=== PATIENT | male | born 1955 | race Caucasian/White ===

== ENCOUNTER 2018-12-26 20:06 | Emergency (ER) | payer OTHER ==
[~2018-12-26] VITALS: Ht 185.5 cm; Wt 64.5 kg
[2018-12-26] MEDS ORDERED: TETANUS,DIPTH,PERTUSS P/F (BOOSTRIX) 0.5 ML VIAL IM ONE (20:45)
[2018-12-26] MEDS ORDERED: LIDOCAINE/EPI 2% 1:100,00 (XYLOCAINE) 20 ML VIAL INJ ONE (21:15)
--- NOTE | 2018-12-26 21:34 | Diagnostic Imaging Report ---
Clinical history: Tree fell on patient striking him in the head. Possible loss of consciousness. Exam: Head CT without IV contrast. Axial CT scan of the cervical spine with sagittal and coronal reformations. Auto Exposure Controls were utilized during the CT exam to meet ALARA standards for radiation dose reduction. Comparison: None. Findings: CT head: There is skull streak artifact which obscures portions of the brainstem, posterior fossa and brain. There is no evidence of acute cerebral infarct, intracranial hemorrhage or gross mass effect. The brain parenchymal volume appears appropriate for patient's age. There is normal blakely-white matter distinction. There is no significant midline shift or herniation. There is no evidence of hydrocephalus. The basal cisterns are unremarkable. There is a small area of extracranial soft tissue swelling involving the right posterior aspect of the head. There is no skull fracture. Skull, extracranial soft tissue and orbits are unremarkable. There is mild mucosal thickening involving both maxillary sinuses. There is moderate mucosal thickening involving the ethmoid sinus. There is mild mucosal thickening involving the frontal sinus and sphenoid sinus. Temporal bones show no significant abnormality. CT cervical spine: There is no acute cervical spine fracture or dislocation. There are vertebral body spurs and suggestion of diffuse disk bulge with mild to moderate loss of intervertebral disc height seen at the C4-C7 levels. There are small bilateral uncinate spurs with moderate to severe bilateral neural foraminal narrowing at these levels. There is no significant bony central canal narrowing. The visualized upper lung carranza show scarring and mild bronchiectasis. There are patchy areas of consolidation in the bilateral apical regions. There is emphysematous disease and bullous changes noted. The neck soft tissue structures show no significant abnormality. Impression: 1: There is no evidence of acute intracranial process. 2. There is no skull fracture. 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 Dictated by: Dictated on workstation # [id number]
--- NOTE | 2018-12-26 21:49 | NUR ---
C-collar cleared by Dr. Beckham @ this time.
[2018-12-26] MEDS ORDERED: SULF1TAB35 PO (21:52)
--- NOTE | 2018-12-26 21:52 | ED Head Injury ---
General Chief Complaint: Trauma-Non Activation Stated Complaint: HEAD LAC Allergies and Home Medications Allergies Coded Allergies: No Known Drug Allergies (Unverified , 12/26/18) Past Yusbpgm-Pmvetn-Ovookp Hx Patient Social History Recent Foreign Travel: No Contact w/Someone Who Travel: No Physical Exam Vital Signs Capillary Refill : Height, Weight, BMI Height: '" Weight: lbs. oz. kg; BMI Method: Progress/Results/Core Measures Results/Orders My Orders Orders - EMETERIO SAL DO Cervical Collar (12/26/18 20:32) Ct Head/Cervical Spine Wo (12/26/18 20:33) Dipht,Pertuss(Acell),Tet Adult (Boostrix (12/26/18 20:45) Lidocaine/Epi 2% 1:100,000 (Xylocaine/Ep (12/26/18 21:15) Sulfamethoxazole/Trimet Ds Tab (Bactrim (12/26/18 22:00) Medications Given in ED Current Medications Medications Dose Ordered Sig/Truman Route Start Time Stop Time Status Last Admin Dose Admin Diphtheria/ Tetanus/Acell Pertussis 0.5 ml ONCE ONCE IM 12/26/18 20:45 12/26/18 20:46 DC 12/26/18 21:14 0.5 ML Departure Impression Primary Impression: Closed head injury with brief loss of consciousness Additional Impressions: Scalp laceration Cervical sprain Xehmnqsoml-tdvucissf-glopfov (DPT) vaccination administered at current visit Disposition: 01 HOME, SELF-CARE Condition: Stable Departure-Patient Inst. Referrals: NO,LOCAL PHYSICIAN (PCP/Family) Primary Care Physician Patient Instructions: Neck Sprain (DC), Concussion, Adult (DC), Laceration Repair With Chano (DC) Add. Discharge Instructions: CLEAN WOUND TWICE A DAY WITH ANTIBACTERIAL SOAP AND WATER CHANO OUT IN 10 DAYS--RETURN TO ER FOR REMOVAL TYLENOL NEEDED FOR PAIN RETURN TO ER IF PROBLEMS All discharge instructions reviewed with patient and/or family. Voiced understanding. Scripts Sulfamethoxazole/Trimethoprim (Bactrim Ds Tablet) 1 Each Tablet 1 EACH PO BID, #20 TAB Prov: EMETERIO SAL DO 12/26/18 EMETERIO SAL DO Dec 26, 2018 21:52
[2018-12-26] MEDS ORDERED: TRIM/SULFAMETH 160/800 (SEPTRA DS) TAB PO ONE (22:00)
[2018-12-26 22:11] VITALS: BP 106/85
== END 2018-12-26 22:11 | disposition home or self-care (01) ==
LOC: EDUNIT# 20:06 → ER 20:07
DX: S06.9X1A Unspecified intracranial injury with loss of consciousness of 30 minutes or less, initial encounter (principal); S01.01XA Laceration without foreign body of scalp, initial encounter; S16.1XXA Strain of muscle, fascia and tendon at neck level, initial encounter; Z23 Encounter for immunization; X58.XXXA Exposure to other specified factors, initial encounter
CPT/HCPCS: 70450; 72125; 90715

== ENCOUNTER 2019-01-04 18:59 | Emergency (ER) | payer OTHER ==
[~2019-01-04] VITALS: Ht 185.4 cm; Wt 62.4 kg
[~2019-01-04 18:59] MED LIST: SULF1TAB35 PO
[2019-01-04] MEDS ORDERED: NS IV 1000 ML 1,000 ML IV ONE (19:35)
[2019-01-04 19:42] LABS: BASOPHILS % (AUTO) 0 % (0-10); EOSINOPHILS # (AUTO) 0.6 10^3/uL (0.0-0.3); EOSINOPHILS % (AUTO) 9 % (0-10); HEMATOCRIT 39 % (40-54); HEMOGLOBIN 13.4 G/DL (13.3-17.7); LYMPHOCYTES # (AUTO) 1.1 X 10^3 (1.0-4.0); LYMPHOCYTES % (AUTO) 17 % (12-44); MEAN CORPUSCULAR HEMOGLOBIN 32 PG (25-34); MEAN CORPUSCULAR HGB CONC 35 G/DL (32-36); MEAN CORPUSCULAR VOLUME 91 FL (80-99); MEAN PLATELET VOLUME 9.1 FL (7.4-10.4); MONOCYTES # (AUTO) 0.4 X 10^3 (0.0-1.0); MONOCYTES % (AUTO) 5 % (0-12); NEUTROPHILS # (AUTO) 4.4 X 10^3 (1.8-7.8); NEUTROPHILS % (AUTO) 69 % (42-75); PLATELET COUNT 218 10^3/uL (130-400); RED CELL DISTRIBUTION WIDTH 12.9 % (10.0-14.5); WHITE BLOOD COUNT 6.5 10^3/uL (4.3-11.0)
[2019-01-04 19:47] LABS: BILIRUBIN,URINE NEGATIVE (NEGATIVE); CLARITY,URINE CLEAR; COLOR,URINE YELLOW; GLUCOSE, URINE (UA) NEGATIVE (NEGATIVE); KETONES,URINE NEGATIVE (NEGATIVE); LEUKOCYTE ESTERASE ,URINE NEGATIVE (NEGATIVE); NITRITE,URINE NEGATIVE (NEGATIVE); PH,URINE 7 (5-9); PROTEIN,URINE NEGATIVE (NEGATIVE)
[2019-01-04 19:54] LABS: PROTHROMBIN TIME PATIENT 13.1 SEC (12.2-14.7)
[2019-01-04 19:56] LABS: BACTERIA,URINE NEGATIVE /HPF; WBC,URINE RARE /HPF
[2019-01-04 19:57] LABS: SQUAMOUS EPITHELIAL CELL,UR RARE /HPF
[2019-01-04 20:00] LABS: ALANINE AMINOTRANSFERASE 13 U/L (0-55); ALBUMIN 4.4 GM/DL (3.2-4.5); ALKALINE PHOSPHATASE 62 U/L (40-136); BILIRUBIN,TOTAL 0.3 MG/DL (0.1-1.0); BUN/CREATININE RATIO 9; CALCIUM 9.1 MG/DL (8.5-10.1); CARBON DIOXIDE 20 MMOL/L (21-32); CHLORIDE 99 MMOL/L (98-107); CREATINE KINASE 84 U/L (30-200); CREATININE SERUM 0.93 MG/DL (0.60-1.30); GFR ESTIMATED > 60; GLUCOSE 108 MG/DL (70-105); MAGNESIUM 1.7 MG/DL (1.6-2.4); POTASSIUM 3.6 MMOL/L (3.6-5.0); SODIUM 133 MMOL/L (135-145); TOTAL PROTEIN 7.1 GM/DL (6.4-8.2)
[2019-01-04 20:17] LABS: ERYTHROCYTE SEDIMENTATION RATE 16 MM/HR (0-30)
--- NOTE | 2019-01-04 20:29 | ED General ---
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 He started Bactrim on December 26 after a laceration repair with avril. He was struck in the head by a falling tree branch and required repair of a laceration. The Bactrim was prescribed prophylactically. About 2 days after starting Bactrim he developed an rash with desquamation of the glans penis. He stopped the Bactrim and the rash improved. He resumed a couple days later and rash worsened. He also now has involvement of the hands and feet with a petechial rash and a sensation of burning and tingling. There does not appear to be any mucous membrane involvement beyond the urethra. He has significant dysuria and clear drainage from the urethra. Because symptoms briefly improved, he took one more dose of Bactrim yesterday morning. He had another exacerbation at that time. He is afebrile. He has generalized body aches. Patient does not currently have a primary care provider. Allergies and Home Medications Allergies Coded Allergies: sulfamethoxazole (Verified Allergy, Unknown, 01/04/19) trimethoprim (Verified Allergy, Unknown, 01/04/19) Home Medications Prednisone 20 Mg Tab, 1 TAB PO UD Take 3 tablets on January 05. Then take 2 tablets daily the next 2 days. Then take 1 tablet daily the next 2 days Prescribed by: TIN URIBE on 01/04/192032 Patient Home Medication List Home Medication List Reviewed: Yes Review of Systems Review of Systems Constitutional: no symptoms reported EENTM: no symptoms reported Respiratory: no symptoms reported Cardiovascular: no symptoms reported Gastrointestinal: no symptoms reported Genitourinary: see HPI Musculoskeletal: see HPI Skin: see HPI Psychiatric/Neurological: No Symptoms Reported Hematologic/Lymphatic: No Symptoms Reported Immunological/Allergic: no symptoms reported Past Dpxgreh-Szcxef-Vtupco Hx Past Med/Social Hx: Reviewed Nursing Past Med/Soc Hx Patient Social History Alcohol Use: Denies Use Recreational Drug Use: No Smoking Status: Current Everyday Smoker Type Used: Cigarettes 2nd Hand Smoke Exposure: Yes Recent Foreign Travel: No Contact w/Someone Who Travel: No Recent Infectious Disease Expo: No Recent Hopitalizations: No Physical Abuse: No Sexual Abuse: No Mistreated: No Fear: No Immunizations Up To Date Tetanus Booster (TDap): Less than 5yrs Seasonal Allergies Seasonal Allergies: No Past Medical History Surgeries: No Respiratory: No Cardiac: No Neurological: No Genitourinary: No Gastrointestinal: No Musculoskeletal: No Endocrine: No HEENT: No Cancer: No Did You Recieve Any Treatments: No Psychosocial: No Integumentary: Yes Recent Skin Changes Blood Disorders: No Physical Exam Vital Signs Vital Signs - First Documented 01/04/19 19:10 Temp 36.1 Pulse 83 Resp 16 B/P (MAP) 101/84 (90) Pulse Ox 98 O2 Delivery Room Air Capillary Refill : Less Than 3 Seconds Height, Weight, BMI Height: '" Weight: lbs. oz. 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 Norm as Tested Skin: Warm/Dry, Petechia, Rash (Petechial rash of the hands and feet without desquamation) Progress/Results/Core Measures Suspected Sepsis Recent Fever Within 48 Hours: No Infection Criteria Present: None New/Unexplained Altered Menta: No Sepsis Screen: No Definite Risk SIRS Temperature: Pulse: 83 Respiratory Rate: 16 Laboratory Tests 01/04/19 19:33: White Blood Count 6.5 Blood Pressure 101 /84 Mean: 90 Laboratory Tests 01/04/19 19:33: Creatinine 0.93, INR Comment 1.0, Platelet Count 218, Total Bilirubin 0.3 Results/Orders Lab Results Laboratory Tests Test 01/04/19 19:33 01/04/19 19:37 Range/Units White Blood Count 6.5 4.3-11.0 10^3/uL Red Blood Count 4.23 L 4.35-5.85 10^6/uL Hemoglobin 13.4 13.3-17.7 G/DL Hematocrit 39 L 40-54 % Mean Corpuscular Volume 91 80-99 FL Mean Corpuscular Hemoglobin 32 25-34 PG Mean Corpuscular Hemoglobin Concent 35 32-36 G/DL Red Cell Distribution Width 12.9 10.0-14.5 % Platelet Count 218 130-400 10^3/uL Mean Platelet Volume 9.1 7.4-10.4 FL Neutrophils (%) (Auto) 69 42-75 % Lymphocytes (%) (Auto) 17 12-44 % Monocytes (%) (Auto) 5 0-12 % Eosinophils (%) (Auto) 9 0-10 % Basophils (%) (Auto) 0 0-10 % Neutrophils # (Auto) 4.4 1.8-7.8 X 10^3 Lymphocytes # (Auto) 1.1 1.0-4.0 X 10^3 Monocytes # (Auto) 0.4 0.0-1.0 X 10^3 Eosinophils # (Auto) 0.6 H 0.0-0.3 10^3/uL Basophils # (Auto) 0.0 0.0-0.1 10^3/uL Erythrocyte Sedimentation Rate 16 0-30 MM/HR Prothrombin Time 13.1 12.2-14.7 SEC INR Comment 1.0 0.8-1.4 Activated Partial Thromboplast Time 28 24-35 SEC Sodium Level 133 L 135-145 MMOL/L Potassium Level 3.6 3.6-5.0 MMOL/L Chloride Level 99 98-107 MMOL/L Carbon Dioxide Level 20 L 21-32 MMOL/L Anion Gap 14 5-14 MMOL/L Blood Urea Nitrogen 8 7-18 MG/DL Creatinine 0.93 0.60-1.30 MG/DL Estimat Glomerular Filtration Rate > 60 BUN/Creatinine Ratio 9 Glucose Level 108 H 70-105 MG/DL Calcium Level 9.1 8.5-10.1 MG/DL Corrected Calcium 8.8 8.5-10.1 MG/DL Magnesium Level 1.7 1.6-2.4 MG/DL Total Bilirubin 0.3 0.1-1.0 MG/DL Aspartate Amino Transf (AST/SGOT) 16 5-34 U/L Alanine Aminotransferase (ALT/SGPT) 13 0-55 U/L Alkaline Phosphatase 62 40-136 U/L Total Creatine Kinase 84 30-200 U/L C-Reactive Protein High Sensitivity 0.62 H 0.00-0.50 MG/DL Total Protein 7.1 6.4-8.2 GM/DL Albumin 4.4 3.2-4.5 GM/DL Urine Color YELLOW Urine Clarity CLEAR Urine pH 7 5-9 Urine Specific [place] 1.005 L 1.016-1.022 Urine Protein NEGATIVE NEGATIVE Urine Glucose (UA) NEGATIVE NEGATIVE Urine Ketones NEGATIVE NEGATIVE Urine Nitrite NEGATIVE NEGATIVE Urine Bilirubin NEGATIVE NEGATIVE Urine Urobilinogen NORMAL NORMAL MG/DL Urine Leukocyte Esterase NEGATIVE NEGATIVE Urine RBC (Auto) NEGATIVE NEGATIVE Urine RBC NONE /HPF Urine WBC RARE /HPF Urine Squamous Epithelial Cells RARE /HPF Urine Crystals NONE /LPF Urine Bacteria NEGATIVE /HPF Urine Casts NONE /LPF Urine Mucus NEGATIVE /LPF Urine Culture Indicated NO My Orders Orders - TIN WATSON MD Ns Iv 1000 Ml (Sodium Chloride 0.9%) (01/04/19 19:35) Cbc With Automated Diff (01/04/19 19:35) Comprehensive Metabolic Panel (01/04/19 19:35) Creatine Kinase (01/04/19 19:35) Hs C Reactive Protein (01/04/19 19:35) Magnesium (01/04/19 19:35) Protime With Inr (01/04/19 19:35) Partial Thromboplastin Time (01/04/19 19:35) Ua Culture If Indicated (01/04/19 19:35) Erythrocyte Sedimentation Rate (01/04/19 19:35) Prednisone Tablet (Deltasone Tablet) (01/04/19 20:30) Medications Given in ED Current Medications Medications Dose Ordered Sig/Truman Route Start Time Stop Time Status Last Admin Dose Admin Prednisone 60 mg ONCE ONCE PO 01/04/19 20:30 01/04/19 20:31 DC 01/04/19 20:39 60 MG Sodium Chloride 1,000 ml @ 0 mls/hr Q0M ONCE IV 01/04/19 19:35 01/04/19 19:37 DC 01/04/19 19:39 0 MLS/HR Vital Signs/I&O 01/04/19 20:46 Temp 36.1 Pulse 74 Resp 16 B/P (MAP) 118/60 (90) Pulse Ox 97 O2 Delivery Room Air 01/05/19 00:00 Intake Total 1000 ml Balance 1000 ml Capillary Refill : Less Than 3 Seconds Blood Pressure Mean: 90 Progress Note : Progress Note Labs were unremarkable. Patient was hydrated with 1 L of IV normal saline. Treatment was initiated with prednisone 60 mg orally. Return precautions were discussed. 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 His body surface area involved is probably not quite 10 percent. Departure Impression Primary Impression: Erythema multiforme Additional Impressions: Adverse effect of sulfamethoxazole Qualified Codes: T37.0X5A - Adverse effect of sulfonamides, initial encounter Localized skin desquamation Disposition: HOME, SELF-CARE Condition: Stable Departure-Patient Inst. Decision time for Depature: 20:30 Referrals: NO,LOCAL PHYSICIAN (PCP/Family) Primary Care Physician Patient Instructions: Allergy to Sulfa Drugs, Erythema Multiforme, Casey- Osito Syndrome and Toxic Epidermal Necrolysis Add. Discharge Instructions: Complete the prednisone taper as prescribed. Stay well-hydrated. You may take Tylenol (acetaminophen) for discomfort. You may contact Dr. Watson with any problems or concerns or if more signifi cant pain management is needed. Follow-up with a primary care provider soon as possible. Avoid any medications containing sulfa including any cross-reactive medication such as loop diuretics. Return to the emergency room if you have significant worsening of condition, especially if you have any involvement of the mouth or airway. All discharge instructions reviewed with patient and/or family. Voiced understanding. Scripts Prednisone (Prednisone) 20 Mg Tab 1 TAB PO UD, #9 TAB 0 Refills Take 3 tablets on January 05. Then take 2 tablets daily the next 2 days. Then take 1 tablet daily the next 2 days Prov: TIN WATSON MD 01/04/19 TIN WATSON MD Jan 04, 2019 20:29
[2019-01-04] MEDS ORDERED: predniSONE 20 MG TAB PO ONE (20:30)
[2019-01-04] MEDS ORDERED: PRD20T PO (20:33)
[2019-01-04 20:46] VITALS: BP 118/60
== END 2019-01-04 20:45 | disposition home or self-care (01) ==
LOC: EDUNIT# 18:59 → ER 19:00
DX: L51.9 Erythema multiforme, unspecified (principal); T37.0X5A Adverse effect of sulfonamides, initial encounter; R23.4 Changes in skin texture; F17.210 Nicotine dependence, cigarettes, uncomplicated; Z88.2 Allergy status to sulfonamides; Z88.1 Allergy status to other antibiotic agents
CPT/HCPCS: 36415; 80053; 81000; 82550; 83735; 85025; 85610; 85652; 85730; 86141; 96360

== ENCOUNTER 2022-11-07 14:42 | Outpatient (CLI) | payer MEDICARE, OTHER ==
[~2022-11-07] VITALS: Ht 185.5 cm; Wt 63.6 kg
[~2022-11-07 14:42] MED LIST changes: +PRD20T PO; -SULF1TAB35 PO; +SULF1TAB38 PO
== END 2022-11-07 16:32 | disposition home or self-care (01) ==
LOC: PREOP 14:42
PROVIDERS: ATTEND Specialist
DX: Z01.818 Encounter for other preprocedural examination (principal)

== ENCOUNTER 2022-11-16 06:44 | Day surgery (SDC) | payer MEDICARE, OTHER ==
[~2022-11-16] VITALS: Ht 185.5 cm; Wt 63.6 kg
[2022-11-16] MEDS ORDERED: TIMOLOL 0.5% (CATARACTS) 0.3 ML BTL OU PRN (07:00)
[2022-11-16] MEDS ORDERED: POVIDONE IODINE OPHTH SOLN 5% 30 ML OP ONE (07:00)
[2022-11-16] MEDS ORDERED: MOXIFLOXACIN OPHTH SOLN 5 MG/ML 0.3 ML SYRINGE OP ONE (07:00)
[2022-11-16] MEDS ORDERED: LIDOCAINE PF 1% 2 ML VIAL IR PRN (07:00)
[2022-11-16] MEDS: TETRACAINE 0.5% OPHTH SOLN 4 ML BTL (SINGLE DOSE ONLY) OU PRN ×4 (07:03→07:22)
[2022-11-16 07:04] VITALS: BP 105/81
[2022-11-16] MEDS: TROPICAMIDE 1% OPH SOLN (MYDRIACYL) 15 ML BTL OP SCH ×3 (07:12→07:22)
[2022-11-16] MEDS: PHENYLEPHRINE 10% OPHTH SOLN 5 ML BTL OU SCH ×3 (07:12→07:22)
[2022-11-16] MEDS ORDERED: MIDAZOLAM INJ 2 MG/2 ML VIAL ONE (07:51)
--- NOTE | 2022-11-16 08:05 | Ophthalmologist Pre-Op Note ---
Pre-Operative Progress Note H&P Reviewed The H&P was reviewed, patient examined and no changes noted. Date H&P Reviewed: Nov 16, 2022 Time H&P Reviewed: 08:05 Pre-Op Dx Cataract, Right Eye NYDIA LOPEZ MD Nov 16, 2022 08:05
--- NOTE | 2022-11-16 08:27 | Ophthalmology Operative Report ---
Cataract removal/placement IOL PREOPERATIVE DIAGNOSIS: Cataract Right Eye POSTOPERATIVE DIAGNOSIS: Cataract Right Eye PROCEDURE: Cataract removal and placement of posterior chamber implant, right eye SURGEON: Ángel Lopez ANESTHESIA: Topical with sedation COMPLICATIONS: None ESTIMATED BLOOD LOSS: Minimal DESCRIPTION OF PROCEDURE: After proper informed consent was obtained, the patient, a 67 male, was taken to the Operating Room and the right eye was anesthetized with tetracaine. The right eye was then prepped and draped in the usual manner. A wire lid speculum was placed. A paracentesis was made at the left hand position. Preservative free lidocaine was injected into the anterior chamber followed by viscoelastic. A clear corneal incision was made in the temporal position. A capsulorrhexis was preformed and the central nuclear and cortical material were removed. The posterior capsule was polished and Andrea [id number] 20.0 IOL was placed into the capsular bag. The residual viscoelastic was aspirated and balanced saline solution was injected into the anterior chamber. Moxifloxacin was injected into the anterior chamber. The wound was checked and found to be water tight. The patient tolerated the procedure well without complications. ÁNGEL LOPEZ MD Nov 16, 2022 08:27
[2022-11-16 08:39] VITALS: BP 135/83
[2022-11-16] MEDS ORDERED: acetaZOLAMIDE 250 MG TABLET PO SCH (09:00)
--- NOTE | 2022-11-16 12:52 | Anesthesia-General Post-Op ---
MAC Patient Condition Mental Status/LOC: Same as Preop Cardiovascular: Satisfactory Nausea/Vomiting: Absent Respiratory: Satisfactory Pain: Controlled Complications: Absent Post Op Complications Complications None Follow Up Care/Instructions Patient Instructions None needed. Anesthesiology Discharge Order Discharge Order Patient is doing well, no complaints, stable vital signs, no apparent adverse anesthesia problems. No complications reported per nursing. ALEXY DAVIS CRNA Nov 16, 2022 12:52
== END 2022-11-16 08:41 | disposition home or self-care (01) ==
LOC: SDC 06:44
PROVIDERS: ATTEND Specialist
DX: H25.9 Unspecified age-related cataract (principal); F17.210 Nicotine dependence, cigarettes, uncomplicated
CPT/HCPCS: 66984; V2632

== ENCOUNTER 2022-11-20 09:38 | Outpatient (CLI) | payer MEDICARE, OTHER | END 2022-11-20 13:36 | disposition home or self-care (01) | LOC: PREOP 09:38 | PROVIDERS: ATTEND Specialist | DX: Z01.818 Encounter for other preprocedural examination (principal) ==